=== PATIENT | male | born 1985 | race Caucasian/White ===

== ENCOUNTER 2019-07-09 06:20 | Emergency (ER) | payer OTHER ==
[~2019-07-09] VITALS: Ht 172.7 cm; Wt 72.6 kg
--- NOTE | 2019-07-09 06:30 | NUR ---
PATIENT WAS MSE BY DR BEARDEN IN ROOM 05A.
[2019-07-09 06:56] LABS: BASOPHILS % (AUTO) 0.2 % (0.0-2.0); EOSINOPHILS % (AUTO) 0.1 % (0.0-7.0); HEMATOCRIT 40.4 % (36.7-47.1); HEMOGLOBIN 13.6 g/dL (12.5-16.3); MEAN CORPUSCULAR HEMOGLOBIN 30.5 uug (23.8-33.4); MEAN CORPUSCULAR HGB CONC 34 g/dL (32.5-36.3); MEAN CORPUSCULAR VOLUME 90.4 fL (73.0-96.2); MONOCYTES # (AUTO) 0.8 K/uL (2.0-10.0); MONOCYTES % (AUTO) 6.8 % (0.0-11.0); NEUTROPHILS # (AUTO) 10.2 K/uL (1.8-8.9); NEUTROPHILS % (AUTO) 84.9 % (38.5-71.5); PLATELET COUNT (AUTO) 405 K/uL (152-348); RED BLOOD CELL COUNT(AUTO) 4.47 MIL/uL (4.06-5.63)
[2019-07-09 06:59] LABS: *CLARITY,URINE SLIGHTLY CLOUDY (CLEAR); *COLOR,URINE YELLOW (YELLOW); *KETONES,URINE NEGATIVE (NEGATIVE); *UROBILINOGEN,URINE >=8.0 E.U./dl (NORMAL); LEUKOCYTE ESTERASE ,URINE NEGATIVE (NEGATIVE); NITRITE, URINE NEGATIVE (NEGATIVE); PH,URINE 6.5 (5.0-8.0); UGLUCOSE TRACE (NEGATIVE)
[2019-07-09] MEDS ORDERED: LORAZEPAM 2 MG/1 ML VIAL IM ONE (07:00)
[2019-07-09] MEDS ORDERED: diphenhydrAMINE 50 MG/1 ML VIAL IM ONE (07:00)
[2019-07-09] MEDS ORDERED: HALOPERIDOL LACTATE 5 MG/1 ML VIAL IM ONE (07:00)
[2019-07-09] MEDS ORDERED: diphenhydrAMINE 50 MG/1 ML VIAL ONE (07:02)
[2019-07-09] MEDS ORDERED: HALOPERIDOL LACTATE 5 MG/1 ML VIAL ONE (07:02)
[2019-07-09] MEDS ORDERED: LORAZEPAM 2 MG/1 ML VIAL ONE (07:03)
[2019-07-09 07:09] LABS: ALANINE AMINOTRANSFERASE 33 U/L (16-63); ALKALINE PHOSPHATASE 69 U/L (50-136); ASPARTATE AMINOTRANSFERASE 46 U/L (15-37); BILIRUBIN,DIRECT 0.3 mg/dL (0.0-0.2); BILIRUBIN,TOTAL 1.1 mg/dL (0.2-1.0); CARBON DIOXIDE 29 mmol/L (21-32); CHLORIDE 103 mmol/L (98-107); CREATININE 1.2 mg/dL (0.6-1.3); GLUCOSE 104 mg/dL (74-106); POTASSIUM 3.4 mmol/L (3.5-5.1); TOTAL PROTEIN, SERUM 7.5 g/dL (6.4-8.2); UREA NITROGEN, BLOOD 16 mg/dL (7-18)
[2019-07-09 07:11] LABS: *AMPHETAMINE, URINE POSITIVE (NEGATIVE); *BARBITURATE, URINE NEGATIVE (NEGATIVE); *CANNABINOID, URINE POSITIVE (NEGATIVE); *COCCAINE, URINE NEGATIVE (NEGATIVE); *OPIATE, URINE NEGATIVE (NEGATIVE); *PHENCYCLIDINE SCREEN,URINE NEGATIVE (NEGATIVE)
--- NOTE | 2019-07-09 07:11 | NUR ---
RECEIVED HAND OFF AND SBAR RECEIVED FROM DITCH DIGGER NURSE PT IS YELLING, CURSING AND COMBATIVE ON 4PT RESTRAINTS RA W/ RIGHT FOREARM SALINE LOCK INTACT HR AT 148BPM, CONSIDERING AGITATION REORIENTED, REDIRECTED, DECREASED STIMULI MONITORED ACCORDINGLY
--- NOTE | 2019-07-09 07:11 | NUR ---
REPORT GIVEN TO DAY SHIFT NURSE.
[2019-07-09 07:12] LABS: ACETAMINOPHEN < 2.0 ug/mL (10-30)
[2019-07-09 07:14] LABS: ETHANOL < 3 MG/DL (0-0)
--- NOTE | 2019-07-09 07:40 | NUR ---
PT STILL YELLING COMBATIVE AND NONCOMPLIANT VISUAL CHECKS DONE CMS CHECK [id number] REMAINED ON 4PT RA NAD
[2019-07-09 07:47] LABS: *BILIRUBIN,URIN 1+ (NEGATIVE); *BLOOD, URINE NEGATIVE (NEGATIVE)
[2019-07-09 07:50] LABS: BACTERIA,URINE NONE SEEN /HPF (NONE SEEN); RBC,URINE 0-3 /HPF (0-3); SQUAMOUS EPITHELIAL CELL,UR FEW /HPF (NONE SEEN); URINE AMORPHOUS URATE MODERATE /HPF
[2019-07-09 07:51] LABS: MUCUS,URINE MANY /LPF (0-FEW)
--- NOTE | 2019-07-09 08:00 | NUR ---
PT IS CALMER ASLEEP BUT EASILY ROUSED. FREQUENT VISUAL CHECKS DONE ON SUPINE, CMS CHECKS DONE [id number] SKIN INTACT MONITORED ACCORDINGLY
--- NOTE | 2019-07-09 09:00 | NUR ---
PT ASLEEP, EASILY ROUSED, NAD RA REDUCED 4POINT TO 3PT RESTRAINTS
--- NOTE | 2019-07-09 10:00 | NUR ---
pt calm and awake. compliant pt speaks clear complete sentences but out of context also noted flight of ideas restraints removed but on standby
--- NOTE | 2019-07-09 11:23 | NUR ---
pt awake and able to tolerate sips of water
--- NOTE | 2019-07-09 11:30 | NUR ---
pt able to tolerate meal
--- NOTE | 2019-07-09 12:54 | NUR ---
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
--- NOTE | 2019-07-09 13:38 | NUR ---
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
--- NOTE | 2019-07-09 14:35 | NUR ---
Patient discharged to home in stable condition. Written and verbal after care instructions given. Patient verbalizes understanding of instructions. Stressed follow up or return to ER for worsening s/s. IV DC DRESSED
[2019-07-09 15:01] VITALS: BP 148/88
== END 2019-07-09 15:01 | disposition home or self-care (01) ==
LOC: ER 06:27
DX: F29 Unspecified psychosis not due to a substance or known physiological condition (principal); F15.129 Other stimulant abuse with intoxication, unspecified; Z59.0 Homelessness; R00.0 Tachycardia, unspecified
CPT/HCPCS: 36415; 80048; 80076; 80307 ×2; 80329; 81001; 85025; 93005 ×2; 96372 ×2; 99285; G0480; J1200; J1630; J2060; A4663